=== PATIENT | male | born 1970 | race African-American/Black ===

== ENCOUNTER 2022-05-24 15:31 | Emergency (ER) | payer OTHER ==
[~2022-05-24] VITALS: Ht 182.9 cm; Wt 101.0 kg
[2022-05-24 15:39] VITALS: BP 145/97
[2022-05-24] MEDS ORDERED: SODIUM CHLORIDE 0.9% 1,000 ML IV ONE (16:30)
[2022-05-24 17:09] LABS: BASOPHILS % 0.2 % (0.0-2.0); EOSINOPHILS % 2.2 % (0.0-5.0); HEMATOCRIT. 44.7 % (42.0-52.0); HEMOGLOBIN. 14.4 g/dL (14.0-18.0); LYMPHOCYTES % 13.1 % (20.0-50.0); MEAN CORPUSCULAR VOLUME 77.5 fL (80.0-94.0); MEAN PLATELET VOLUME 8.2 fl (7.4-10.4); MONOCYTES % 7.2 % (2.0-8.0); NEUTROPHILS % 77.3 % (40.0-76.0); PLATELET 241 x1000/uL (130-400); RED BLOOD CELL COUNT 5.77 mill/uL (4.7-6.1); RED CELL DISTRIBUTION WIDTH 14.6 % (11.6-14.6)
[2022-05-24 17:18] LABS: D-DIMER 0.38 mg/L FEU (<0.50)
[2022-05-24 17:22] LABS: CHLORIDE 100 mEq/L (98-107)
[2022-05-24] MEDS ORDERED: IPRATROPIUM BROMIDE (0.02%) 0.5MG/2.5ML NEB HHN STA (17:39)
[2022-05-24] MEDS ORDERED: ALBUTEROL (0.083%) 2.5MG/3ML NEB HHN STA (17:39)
[2022-05-24] MEDS ORDERED: DEXAMETHASONE 4MG/ML 1ML VIAL IV ONE (17:45)
[2022-05-24] MEDS ORDERED: MED4 MT (20:20)
[2022-05-24] MEDS ORDERED: ALBU6.7H3 INH (20:20)
== END 2022-05-24 20:50 | disposition home or self-care (01) ==
LOC: ER 15:31
DX: J06.9 Acute upper respiratory infection, unspecified (principal); R06.02 Shortness of breath; I49.9 Cardiac arrhythmia, unspecified; Z20.822 Contact with and (suspected) exposure to COVID-19
CPT/HCPCS: 36415; 71045; 80053; 83605; 83880; 84145; 84484; 85025; 85379; 85610; 87040; 87426; 87804; 93005; 94640; 96361; 96374; 99285; C9803; J1100; J7030; Z7610

== ENCOUNTER 2023-04-16 09:27 | Inpatient (IN) | payer MEDICAID, OTHER ==
[~2023-04-16] VITALS: Ht 180.3 cm; Wt 100.2 kg
[~2023-04-16 09:27] MED LIST: ALBU6.7H3 INH; MED4 MT
[2023-04-16 10:51] LABS: BASOPHILS % 0.1 % (0.0-2.0); DIFFERENTIAL COMMENT 0; EOSINOPHILS % 0.2 % (0.0-5.0); HEMATOCRIT. 44.6 % (42.0-52.0); HEMOGLOBIN. 14.1 g/dL (14.0-18.0); LYMPHOCYTES % 8.6 % (20.0-50.0); MEAN CORPUSCULAR HEMOGLOBIN 24.4 pg (28.0-32.0); MEAN CORPUSCULAR HGB CONC 31.6 g/dL (31.0-37.0); MEAN CORPUSCULAR VOLUME 77.3 fL (80.0-94.0); MEAN PLATELET VOLUME 8.1 fl (7.4-10.4); MONOCYTES % 8.7 % (2.0-8.0); NEUTROPHILS % 82.4 % (40.0-76.0); PLATELET 299 x1000/uL (130-400); RED BLOOD CELL COUNT 5.77 mill/uL (4.7-6.1); WHITE BLOOD COUNT 13.2 x1000/uL (4.5-11.0)
[2023-04-16 10:58] LABS: INR 1.1; PARTIAL THROMBOPLASTIN TIME 30.1 sec (23.4-31.0)
[2023-04-16 11:19] LABS: CHLORIDE 99 mEq/L (98-107); INDEX HEMOLYSI 1 (1-3); INDEX ICTERIC 1 (1-4); INDEX LIPEMIC 1 (1-3); POTASSIUM 4.2 mEq/L (3.5-5.1); SODIUM 132 mEq/L (136-145)
[2023-04-16 11:29] LABS: ALANINE AMINOTRANSFERASE 19 IU/L (13-61); ALBUMIN 3.2 g/dL (3.4-5.0); ASPARTATE AMINOTRANSFERASE 12 IU/L (15-37); BILIRUBIN TOTAL 0.9 mg/dL (0.1-1.0); CALCIUM 8.9 mg/dL (8.5-10.1); CARBON DIOXIDE 30 mEq/L (21-32); CREATININE 1.2 mg/dL (0.6-1.3); GLUCOSE 130 mg/dL (70-105); PROTEIN TOTAL 8.6 g/dL (6.0-8.3); UREA NITROGEN BLOOD 8 mg/dL (7-21)
[2023-04-16] MEDS ORDERED: VANCOMYCIN 1G PREMIX 200 ML IV SCH (12:00)
[2023-04-16] MEDS ORDERED: SODIUM CHLORIDE 0.9% 1000ML BAG (SEPSIS BOLUS) IV ONE (12:00)
[2023-04-16] MEDS ORDERED: PIPERACILLIN/TAZOBACTAM 3.375GM/50ML PREMIX IV ONE (13:00)
[2023-04-16] MEDS ORDERED: TRAMADOL 50MG TABLET PO PRN (18:15)
[2023-04-16] MEDS ORDERED: ACETAMINOPHEN 325MG TABLET PO PRN (18:15)
[2023-04-16] MEDS ORDERED: DOCUSATE SODIUM 100MG CAPSULE PO PRN (18:15)
[2023-04-16] MEDS ORDERED: CLONIDINE 0.1MG TABLET PO PRN (18:15)
[2023-04-16] MEDS ORDERED: HYDROCODONE/ACETAMINOPHEN 7.5/325MG TABLET PO PRN (18:15)
[2023-04-16] MEDS ORDERED: GUAIFENESIN 200MG/10ML SUGAR FREE UDC PO PRN (18:15)
[2023-04-16] MEDS ORDERED: ONDANSETRON HCL 4MG/2ML INJ IV PRN (18:15)
[2023-04-16] MEDS ORDERED: PIPERACILLIN/TAZ 3.375G PREMIX 50 ML IV NR (18:30)
[2023-04-16 20:00] VITALS: BP 140/75; PULSE 102; RESP 19; TEMP 97.8
[2023-04-16] MEDS: HYDROCODONE/ACETAMINOPHEN 5/325MG TABLET PO PRN (21:27)
[2023-04-16] MEDS ORDERED: PIPERACILLIN/TAZOBACTAM 3.375 G in DEXTROSE 5% WATER 50 ML IV SCH (23:00)
[2023-04-17] VITALS: BP 123/79; PULSE 92; RESP 20; TEMP 97.1
[2023-04-17] MEDS: VANCOMYCIN 1G PREMIX 200 ML IV SCH ×2 (00:12→12:53)
[2023-04-17] MEDS: PIPERACILLIN/TAZOBACTAM 3.375 G in DEXTROSE 5% WATER 50 ML IV SCH ×2 (01:00→09:25)
[2023-04-17] MEDS ORDERED: [UNRECOGNIZED DRUG - OTHER] (01:00)
[2023-04-17] MEDS ORDERED: DOLU50TA PO (01:00)
[2023-04-17 04:00] VITALS: BP 119/80; PULSE 91; RESP 20; TEMP 100.2
[2023-04-17] MEDS: HYDROCODONE/ACETAMINOPHEN 5/325MG TABLET PO PRN (05:00)
[2023-04-17 06:46] LABS: BASOPHILS % 0.3 % (0.0-2.0); DIFFERENTIAL COMMENT 0; EOSINOPHILS % 0.3 % (0.0-5.0); HEMATOCRIT. 39.5 % (42.0-52.0); HEMOGLOBIN. 12.7 g/dL (14.0-18.0); LYMPHOCYTES % 7.6 % (20.0-50.0); MEAN CORPUSCULAR HEMOGLOBIN 24.6 pg (28.0-32.0); MEAN CORPUSCULAR HGB CONC 32.3 g/dL (31.0-37.0); MEAN CORPUSCULAR VOLUME 76.2 fL (80.0-94.0); MEAN PLATELET VOLUME 8.1 fl (7.4-10.4); MONOCYTES % 8.8 % (2.0-8.0); PLATELET 259 x1000/uL (130-400); RED BLOOD CELL COUNT 5.18 mill/uL (4.7-6.1); RED CELL DISTRIBUTION WIDTH 13.8 % (11.6-14.6)
[2023-04-17 08:29] LABS: CHLORIDE 99 mEq/L (98-107); INDEX HEMOLYSI 1 (1-3); INDEX ICTERIC 1 (1-4); INDEX LIPEMIC 1 (1-3); POTASSIUM 4.3 mEq/L (3.5-5.1); SODIUM 132 mEq/L (136-145)
[2023-04-17 10:06] LABS: ALANINE AMINOTRANSFERASE 22 IU/L (13-61); ALBUMIN 2.7 g/dL (3.4-5.0); ASPARTATE AMINOTRANSFERASE 19 IU/L (15-37); BILIRUBIN TOTAL 0.9 mg/dL (0.1-1.0); CALCIUM 8.2 mg/dL (8.5-10.1); CARBON DIOXIDE 28 mEq/L (21-32); CHOLESTEROL 58 mg/dL (<200); CREATININE 1.1 mg/dL (0.6-1.3); GLUCOSE 123 mg/dL (70-105); HDL CHOLESTEROL 33 mg/dL (40-59); LDL CHOLESTEROL 29 mg/dL (5-100); PROTEIN TOTAL 7.5 g/dL (6.0-8.3); UREA NITROGEN BLOOD 10 mg/dL (7-21)
[2023-04-17] MEDS ORDERED: MUPIROCIN 2% OINT 22GM NS SCH (12:00)
[2023-04-17 14:41] VITALS: BP 121/86; PULSE 83; TEMP 98.2; O2SAT 98
[2023-04-17 16:00] VITALS: BP 120/80; PULSE 95; RESP 20; TEMP 101.8
[2023-04-17 16:08] VITALS: TEMP 102.4
[2023-04-18 20:52] LABS: TRIGLYCERIDE 31 mg/dL (0-150)
== END 2023-04-17 16:26 | disposition home or self-care (01) | DRG 383 ==
LOC: ER 09:27 → 6EST 13:36
PROVIDERS: ADMIT Hospitalist; ATTEND Hospitalist
DX: L03.113 Cellulitis of right upper limb (principal); E87.1 Hypo-osmolality and hyponatremia; R65.10 Systemic inflammatory response syndrome (SIRS) of non-infectious origin without acute organ dysfunction; J40 Bronchitis, not specified as acute or chronic; S51.001A Unspecified open wound of right elbow, initial encounter; Z79.899 Other long term (current) drug therapy; X58.XXXA Exposure to other specified factors, initial encounter; Y93.89 Activity, other specified; Y92.89 Other specified places as the place of occurrence of the external cause; Y99.8 Other external cause status
CPT/HCPCS: 36415; 71045; 73200; 80053; 80061; 83605; 85025; 93005; 99285; J2543; J3370; J7030; J7060

== ENCOUNTER 2024-09-27 16:25 | Emergency (ER) | payer SELFPAY ==
[~2024-09-27] VITALS: Ht 180.3 cm; Wt 98.4 kg
[~2024-09-27 16:25] MED LIST changes: +DOLU50TA PO; -MED4 MT; +METH4TAB95 MT; +[UNRECOGNIZED DRUG - OTHER]
[2024-09-27 16:38] VITALS: O2SAT 100
[2024-09-27] MEDS: KETOROLAC 30MG/ML VIAL IM STA (21:00)
[2024-09-27] MEDS: HYDROCODONE/ACETAMINOPHEN 5/325MG TABLET PO STA (21:01)
[2024-09-27 21:26] LABS: CLARITY URINE CLEAR (CLEAR); COLOR URINE YELLOW (YELLOW); GLUCOSE URINE NEGATIVE (NEGATIVE); KETONES URINE NEGATIVE (NEGATIVE); LEUKOCYTE ESTERASE URINE NEGATIVE (NEGATIVE); NITRITE URINE NEGATIVE (NEGATIVE); OCCULT BLOOD URINE NEGATIVE (NEGATIVE); PH URINE 5.5 (4.5-8.0); PROTEIN URINE NEGATIVE (NEGATIVE); SPECIFIC GRAVITY URINE 1.021 (1.005-1.030); UROBILINOGEN URINE 0.2 E.U./dL (0.2-1.0)
[2024-09-27] MEDS ORDERED: CYCL5TAB3 MT (21:33)
[2024-09-27] MEDS ORDERED: NAPR-681 MT (21:33)
[2024-09-27 21:47] VITALS: BP 132/79; PULSE 83; RESP 19; TEMP 36.8; O2SAT 100
== END 2024-09-27 21:47 | disposition home or self-care (01) ==
LOC: ER 16:25
DX: M54.50 Low back pain, unspecified (principal)
CPT/HCPCS: 99283; 81003; 96372; J1885